=== PATIENT | female | born 1995 ===

== ENCOUNTER 2021-06-03 14:34 | Outpatient (REF) | payer OTHER, MEDICAID, SELFPAY ==
--- NOTE | ~2021-06-03 | XR_ITS ---
EXAMINATION: XR RIGHT ANKLE AND RIGHT WRIST CLINICAL INFORMATION: Pain right ankle and right wrist. COMPARISON: None. TECHNIQUE: 3 views right wrist and 3 views right ankle. FINDINGS: Right ankle: There is no visible acute fracture or dislocation. The ankle mortise and subtalar joints are normal. There are bridging anterior osteophytes at the tibial talar joint. The soft tissues are normal. Right wrist: There is no visible acute fracture, dislocation or lytic process seen. The radioulnar carpal joint appears normal. The carpometacarpal joint space is normal. No bony erosive changes seen. XR/XR ankle RT min 3V IMPRESSION: Moderate bridging osteophyte anterior tibiotalar joint right ankle. No visible acute fracture or dislocation seen. Unremarkable right wrist exam.
--- NOTE | ~2021-06-03 | XR_ITS ---
EXAMINATION: XR RIGHT ANKLE AND RIGHT WRIST CLINICAL INFORMATION: Pain right ankle and right wrist. COMPARISON: None. TECHNIQUE: 3 views right wrist and 3 views right ankle. FINDINGS: Right ankle: There is no visible acute fracture or dislocation. The ankle mortise and subtalar joints are normal. There are bridging anterior osteophytes at the tibial talar joint. The soft tissues are normal. Right wrist: There is no visible acute fracture, dislocation or lytic process seen. The radioulnar carpal joint appears normal. The carpometacarpal joint space is normal. No bony erosive changes seen. XR/XR wrist RT min 3V IMPRESSION: Moderate bridging osteophyte anterior tibiotalar joint right ankle. No visible acute fracture or dislocation seen. Unremarkable right wrist exam.
== END 2021-06-03 14:35 | disposition home or self-care (01) ==
LOC: HO.HOSX 14:34
PROVIDERS: Visit Provider Physician Assistant
DX: S93.401A Sprain of unspecified ligament of right ankle, initial encounter (principal); S93.501A Unspecified sprain of right great toe, initial encounter; M25.531 Pain in right wrist
CPT/HCPCS: 73110; 73610

== ENCOUNTER → 2021-07-12 13:22 | Outpatient (BNVA) | payer OTHER, SELFPAY | PROVIDERS: Visit Provider Physician Assistant | DX: S63.501D Unspecified sprain of right wrist, subsequent encounter (principal); S63.40 Traumatic rupture of unspecified ligament of finger at metacarpophalangeal and interphalangeal joint | CPT/HCPCS: 99212 ==

== ENCOUNTER → 2021-08-09 10:19 | Outpatient (BNVA) | payer OTHER, MEDICAID, SELFPAY | PROVIDERS: Visit Provider Physician Assistant | DX: Z13.89 Encounter for screening for other disorder (principal) ==

== ENCOUNTER 2021-09-18 10:34 | Outpatient (RCR) | payer OTHER, MEDICAID, SELFPAY ==
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
== END 2022-01-08 14:01 | disposition home or self-care (01) ==
LOC: HO.OT 10:34
PROVIDERS: PCP Nurse Practitioner Primary Care; Visit Provider Physician Assistant
DX: S63.501D Unspecified sprain of right wrist, subsequent encounter (principal)
CPT/HCPCS: 97110; 97165

== ENCOUNTER 2021-11-07 14:00 | Outpatient (RCR) | payer OTHER, MEDICAID, SELFPAY ==
--- NOTE | 2021-12-18 13:41 | MHC.PT.DC ---
[facility] [place] Office [place] Office [place] Office [address] [place] [address] [phone] F: [phone] F: [phone] F: [phone] F: [phone] Physical Therapy Discharge Report Diagnosis: RIGHT ANKLE SPRAIN Date of Surgery: NA Date of Evaluation: 10/02/21 Date of Discharge: 12/18/21 Treatments to Date: 6 Cancellations to Date: 0 No Shows to Date: 0 Discharge Status: Patient Elected to Stop Discharge Summary: At last attended visit, Pt reports the ankle feels better. Declined additional therex d/t spinal fx that she reports she is seeing a chiropractor tomorrow for. She then no showed for remaining visits. Electronically signed by: Kaila Boothe PT, DPT Please sign and return to therapist. Thank you for your referral.
== END 2021-12-18 13:41 | disposition home or self-care (01) ==
LOC: HO.PT 14:00
PROVIDERS: PCP Nurse Practitioner Primary Care; Visit Provider Physician Assistant
DX: S93.401A Sprain of unspecified ligament of right ankle, initial encounter (principal)
CPT/HCPCS: 97110; 97140; 97161; 97530

== ENCOUNTER 2023-01-09 16:20 | Outpatient (REF) | payer OTHER, MEDICAID, SELFPAY ==
[2023-01-09 18:24] LABS: HCG Quantitative 958 mIU/mL
== END 2023-01-09 16:21 | disposition home or self-care (01) ==
LOC: HO.HHCL 16:20
PROVIDERS: Visit Provider Nurse Practitioner Primary Care
DX: Z32.01 Encounter for pregnancy test, result positive (principal)
CPT/HCPCS: 36415; 84702

== ENCOUNTER 2023-02-26 14:36 | Outpatient (REF) | payer OTHER, MEDICAID, SELFPAY ==
[2023-02-26 17:04] LABS: HCG Quantitative 16 mIU/mL
== END 2023-02-26 14:37 | disposition home or self-care (01) ==
LOC: HO.HHCL 14:36
PROVIDERS: Visit Provider Advanced Practice Midwife
DX: N96 Recurrent pregnancy loss (principal)
CPT/HCPCS: 36415; 84702

== ENCOUNTER 2023-03-19 16:15 | Outpatient (REF) | payer OTHER, MEDICAID, SELFPAY ==
[2023-03-24 04:33] LABS: C. trachomatis RNA TMA NOT DETECTED (NOT DETECTED); N. gonorrhoeae RNA TMA NOT DETECTED (NOT DETECTED); Trichomonas (NAAT) NOT DETECTED (NOT DETECTED)
== END 2023-03-19 16:16 | disposition home or self-care (01) ==
LOC: HO.HHCLNP 16:15
PROVIDERS: Visit Provider Advanced Practice Midwife
DX: Z12.4 Encounter for screening for malignant neoplasm of cervix (principal); Z20.2 Contact with and (suspected) exposure to infections with a predominantly sexual mode of transmission
CPT/HCPCS: 36415; 87491; 87591; 87661; 88142

== ENCOUNTER 2023-11-11 10:42 | Emergency (ER) | payer MEDICAID, SELFPAY ==
[2023-11-11 10:49] VITALS: BP 102/68; PULSE 78; RESP 14; TEMP 36.2; O2SAT 100; BMI 26.9
[2023-11-11 11:30] LABS: MANUAL DIFF FLAG NO
[2023-11-11 11:37] LABS: Appearance Urine Cloudy; Basophils Percent Auto 0.6 % (0-2); Color Urine Dark Yellow; Eosinophils Absolute Auto 0.1 X10*3/uL (0.0-0.4); Glucose Urine UA Negative (Negative); Hematocrit 36.3 % (37.0-47.0); Hemoglobin 12.6 g/dl (12.0-16.0); Imm Gran Abs Auto 0.05 X10*3/uL (0.00-0.03); Imm Gran Pct Auto 0.8 % (0.0-0.4); Leukocyte Esterase Urine Small (1+) (Negative); Lymphocytes Absolute Auto 1.6 X10*3/uL (1.2-4.9); Lymphocytes Percent Auto 24.6 % (20-40); Mean Corpuscular HGB Conc 34.7 g/dl (31.0-35.0); Mean Corpuscular Hemoglobin 32.9 pg (27.0-33.0); Mean Corpuscular Volume 94.8 fL (80.0-98.0); Mean Platelet Volume 10.8 fL (9.4-12.3); Monocytes Absolute Auto 0.6 X10*3/uL (0.1-1.2); Monocytes Percent Auto 9.7 % (2-11); Neutrophils Percent Auto 62.3 % (45-73); Nitrite Urine Negative (Negative); Platelet Count 287 X10*3/uL (160-400); Red Blood Count 3.83 X10*6/uL (4.20-5.50); Red Cell Distribution Width 12.7 % (11.0-16.0); Specific Gravity - Urine 1.025 (1.005-1.025); UMIC TRIGGER UACC YES; Urine Blood Large (3+) (Negative); Urine Ketones Negative (Negative); Urine Protein 30 (1+) mg/dL (Neg-Trace); White Blood Count 6.4 X10*3/uL (4.8-10.8)
[2023-11-11 11:41] LABS: UPreg QC Valid YES; Urine Pregnancy NEGATIVE (NEGATIVE)
[2023-11-11 11:42] LABS: Bacteria Urine 4+ (None Seen); Hyaline Casts Urine 0-2 /LPF (0-2); Squamous Epithelial Cell Urine >20 /HPF (0-2); UACC Culture Trigger YES
[2023-11-11 11:50] LABS: Alanine Aminotransferase 24 U/L (0-31); Albumin Level 4.1 g/dL (3.5-5.0); Alkaline Phosphatase 70 U/L (39-117); Anion Gap 10 (12-20); Aspartate Amino Transferase 32 U/L (5-31); Bilirubin Total 0.8 mg/dL (0.0-1.0); Blood Urea Nitrogen 13 mg/dL (9-16); Calcium 9.8 mg/dL (8.4-10.2); Carbon Dioxide 30 mmol/L (22-29); Chloride 105 mmol/L (96-108); Creatinine Clr Calc Pharmacy 111.9; Estimated Glomerular Filt Rate > 60; Glucose Random 86 mg/dL (60-115); Potassium 4.8 mmol/L (3.3-5.1); Sodium 140 mmol/L (135-145); Total Protein 7.4 g/dL (6.5-8.0)
--- NOTE | 2023-11-11 12:39 | ED_ITS ---
HPI - General Adult General Chief complaint: Vaginal Bleeding Stated complaint: bleeding-genital Time Seen by Provider: 11/11/23 12:14 Source: patient and nail sticker (all interactions with this patient were facilitated with an [facility] glazier supervisor) Mode of arrival: ambulatory Limitations: language barrier (all interactions with this patient were facilitated with an [facility] [place] [facility] glazier supervisor) History of Present Illness ED Provider: Maryam Schroeder PA-C HPI narrative: Patient is a 28 year old assigned female at with no reported medical history presenting to the emergency department today with persistent vaginal bleeding. Patient states that her period ended 2 weeks ago but she recently started bleeding again, going through 2-3 pads a day. Patient states that when she was heavier she had irregular periods but that hasn't been an issue since losing the weight. Patient denies any dizziness, lightheadedness, abdominal pain, nausea, vomiting, fever, chills, blurry vision, double vision, loss of vision, chest pain, difficulty breathing, shortness of breath, back pain, night sweats, pain with urination, increased urinary frequency, increased urinary urgency, syncope or a near syncopal episode, recent trauma or falls, bowel incontinence, bladder incontinence, or any other complaints at this time. Relieving factors: none Exacerbating factors: none Associated symptoms: denies other symptoms Treatments prior to arrival: none Related Data Home Medications ?Medication ?Instructions ?Recorded ?Confirmed acetaminophen 650 mg 650 mg PO Q12H 06/03/21 tablet,extended release (Mapap Arthritis Pain) cyclobenzaprine 7.5 mg tablet 7.5 mg PO BEDTIME 06/03/21 Previous Rx's ?Medication ?Instructions ?Recorded naproxen 500 mg tablet (Naprosyn) 500 mg PO BID 30 days #60 tabs 11/27/21 Allergies Allergy/AdvReac Type Severity Reaction Status Date / Time No Known Allergies Allergy Verified 11/11/23 10:56 Review of Systems 2 Constitutional: Constitutional: Reports no additional constitutional complaints, Denies chills, Denies fever(s) and Denies night sweats Eyes: Eyes: Reports no additional eye complaints, Denies blurry vision, Denies change in vision, Denies diplopia, Denies eye discharge, Denies loss of vision and Denies eye pain ENT: Denies dizziness Cardiovascular: Cardiovascular: Reports no additional cardiovascular complaints, Denies chest pain, Denies lightheadedness, Denies Loss of Consciousness and Denies dyspnea Respiratory: Respiratory: Reports no additional respiratory complaints and Denies dyspnea Gastrointestinal: Gastrointestinal: Reports no additional gastrointestinal complaints, Denies abdominal pain, Denies melena, Denies hematochezia, Denies change in bowel habits and Denies change in stool character Genitourinary: Genitourinary: Denies hematuria, Denies urinary frequency, Denies dysuria, Denies urinary incontinence, Denies urinary hesitancy and Denies urinary urgency Comments: vaginal bleeding Musculoskeletal: Musculoskeletal: Reports no additional musculoskeletal complaints, Denies numbness and Denies tingling Neurologic: Denies dizziness, Denies loss of vision, Denies numbness and Denies tingling Psychiatric: Psychiatric: Reports no additional psychiatric complaints Endocrine: Endocrine: Reports no additional endocrine complaints Hematologic/Lymphatic: Hematologic/Lymphatic: Reports no additional hematologic/lymphatic complaints Allergic/Immunologic: Allergic/Immunologic: Reports no additional allergic/immunologic complaints PMFSH Past Medical History Attestation statement: The following information was validated with the patient. Source: old records reviewed and nursing notes reviewed Social History Social History Advance Directives: No Advance Directives Information Provided: No Current occupational status: employed Current occupation: STAFF MIDWIFE/APPRENTICESHIP DIRECTOR warehouse/ rt hand Physical Exam ED Vital Signs: Vital Signs - 24 hr 11/11/23 10:49 11/11/23 13:24 Temperature 97.1 F 97.7 F Pulse Rate 78 77 Respiratory Rate 14 16 Blood Pressure 102/68 103/70 Pulse Oximetry 100 99 Oxygen Delivery Method Room Air Room Air BMI result Body Mass Index 26.9 Const General: cooperative, no acute distress, alert and awake Nutritional Appearance: well nourished Orientation/consciousness: patient oriented x3 Limitations: no limitations [facility] Head: Yes normal to inspection and Yes atraumatic Ears: hearing grossly normal bilaterally and external ears normal General nose exam: Normal external nose present, no nasal discharge noted and no epistaxis Face and sinus: Yes normal facial exam, No abrasion and No laceration Mouth: Normal oral and palatal mucosa present, no drooling and no muffled voice Eyes General: appearance normal, both eyes and all related structures Periorbital: periorbital findings normal Eyelids: Yes eyelids normal Conjunctivae: conjunctivae normal Pupils: Equal, round and reactive pupils present EOM: EOMs intact bilaterally Neck Neck: Yes normal visual inspection, Yes full ROM and Yes no lymphadenopathy Chest Chest palpation & inspection: normal inspection of the chest Resp Effort & Inspection: normal respiratory effort and able to speak in complete sentences GI Inspection: Yes normal to inspection Neuro General: patient oriented x3 and moves all extremities Cranial nerves: Yes Equal, round and reactive pupils present Cognition (Neuro): normal cognition Extrem General: Yes normal to inspection, Yes full ROM and Yes capillary refill normal Psych Appearance: grossly normal Mental Status: mental status grossly normal Affect: normal affect Attitude: cooperative Thought process: Normal thought process present Thought content: Normal thought content present Insight: Good insight present (Psych) Medical Decision Making Medical Decision Making MDM Narrative: Patient is a 28 year old assigned female at with no reported medical history presenting to the emergency department today with vaginal bleeding. Patient's physical exam was unremarkable. Patient's blood work was unremarkable. Patient's urine showed a possible UTI however, the patient's urine sample has a lot of contamination, will await culture before initiating treatment. I explained my physical exam findings as well as all test results to the patient. I answered all questions asked by the patient. I stressed the importance of the patient taking her medication as directed (either prescribed or as the over the counter packaging recommends). I stressed the importance of the patient following up with her primary care provider. I stressed the importance of the patient returning to the emergency department immediately if her symptoms were to worsen or if she were to develop any dizziness, shortness of breath, difficulty breathing, chest pain, blurry vision, loss of vision, nausea, vomiting, abdominal pain, fever, chills, back pain, or any other complaints. Patient verbalized agreement and understanding with this treatment plan and discharge. Differential Diagnosis Differential Diagnoses: The differential diagnosis associated with the presentation includes Vaginal bleeding Abnormal uterine bleeding PCOS Admission/Observation Consideration of admission/observation: Escalation of care including admission/observation considered Patient would have been admitted to the hospital had her work up had any findings where hospital admission was appropriate and her clinical presentation warranted hospital admission. Lab Data [facility] Lab Attestation statement: I reviewed the patient's lab results. My interpretation of these results are in the [facility] Rationale portion of this note. 11/11/23 11:24 11/11/23 11:24 Labs: Lab Results 11/11/23 Range/Units 11:24 WBC 6.4 (4.8-10.8) X10*3/uL RBC 3.83 L (4.20-5.50) X10*6/uL Hgb 12.6 (12.0-16.0) g/dl Hct 36.3 L (37.0-47.0) % MCV 94.8 (80.0-98.0) fL MCH 32.9 (27.0-33.0) pg MCHC 34.7 (31.0-35.0) g/dl RDW 12.7 (11.0-16.0) % Plt Count 287 (160-400) X10*3/uL MPV 10.8 (9.4-12.3) fL Immature Gran % (Auto) 0.8 H (0.0-0.4) % Neut % (Auto) 62.3 (45-73) % Lymph % (Auto) 24.6 (20-40) % [place] % (Auto) 9.7 (2-11) % Eos % (Auto) 2.0 (0-4) % Baso % (Auto) 0.6 (0-2) % Lymph # (Auto) 1.6 (1.2-4.9) X10*3/uL [place] # (Auto) 0.6 (0.1-1.2) X10*3/uL Eos # (Auto) 0.1 (0.0-0.4) X10*3/uL Baso # (Auto) 0.0 (0.0-0.2) X10*3/uL Abs Immat Gran (auto) 0.05 H (0.00-0.03) X10*3/uL Absolute Neuts (auto) 4.0 (2.0-8.3) x10*3/uL Absolute Nucleated RBC 0.000 (0.0-0.012) X10*3/uL Nucleated RBC % (auto) 0.0 (0.0-0.2) /100WBC Sodium 140 (135-145) mmol/L Potassium 4.8 (3.3-5.1) mmol/L Chloride 105 (96-108) mmol/L Carbon Dioxide 30 H (22-29) mmol/L Anion Gap 10 L (12-20) BUN 13 (9-16) mg/dL Creatinine 0.73 (0.5-1.4) mg/dL Estim Creat Clear Calc 111.9 Estimated GFR > 60 Random Glucose 86 (60-115) mg/dL Calcium 9.8 (8.4-10.2) mg/dL Total Bilirubin 0.8 (0.0-1.0) mg/dL AST 32 H (5-31) U/L ALT 24 (0-31) U/L Alkaline Phosphatase 70 (39-117) U/L Total Protein 7.4 (6.5-8.0) g/dL Albumin 4.1 (3.5-5.0) g/dL Urine Color Dark Yellow Urine Appearance Cloudy Urine pH 7.0 (5.0-9.0) Ur Specific [place] 1.025 (1.005-1.025) Urine Protein 30 (1+) H (Neg-Trace) mg/dL Urine Glucose (UA) Negative (Negative) mg/dL Urine Ketones Negative (Negative) mg/dL Urine Blood Large (3+) H (Negative) Urine Nitrite Negative (Negative) Ur Leukocyte Esterase Small (1+) H (Negative) Urine RBC 11-20 H (0-2) /HPF Urine WBC 11-20 H (0-5) /HPF Ur Squamous Epith Cells >20 (0-2) /HPF Urine Bacteria 4+ (None Seen) Hyaline Casts 0-2 (0-2) /LPF Urine Test NEGATIVE (NEGATIVE) Tests considered The following testing was considered but not selected: I considered obtaining a pelvic ultrasound however, the patient's clinical presentation does not warrant it. I discussed this with the patient who verbalized understanding and agreement. Discharge Plan Discharge Clinical Impression: Dysfunctional uterine bleeding Patient Disposition: Home, Self-Care Instructions: Dysfunctional Uterine Bleeding (ED) Additional Instructions: Follow up with your primary care provider and an OBGYN. Return to the emergency department immediately if your symptoms worsen or if you develop any dizziness, shortness of breath, difficulty breathing, chest pain, blurry vision, loss of vision, nausea, vomiting, abdominal pain, fever, chills, back pain, or any other complaints. Julius un seguimiento con garcia m?dico de atenci?n primaria y un ginec?logo obstetra. Vuelva inmediatamente al servicio de urgencias si luz s?ntomas empeoran o si presenta mareos, falta de aliento, dificultad para respirar, dolor tor?cico, visi?n borrosa, p?rdida de visi?n, n?useas, v?mitos, dolor abdominal, fiebre, escalofr?os, dolor de espalda o cualquier otra molestia. Prescriptions: No Action acetaminophen [Mapap Arthritis Pain] 650 mg tablet extended release 650 mg PO Q12H cyclobenzaprine 7.5 mg tablet 7.5 mg PO BEDTIME naproxen [Naprosyn] 500 mg tablet 500 mg PO BID 30 Days Qty: 60 3RF Referrals: [facility] Family Medicine [Provider Group] (Call to establish and follow up with a primary care provider. If you already have a primary care provider, please follow up with them.) [facility] Primary Care, Francine [Provider Group] (Call to establish and follow up with a primary care provider. If you already have a primary care provider, please follow up with them.) [facility] Primary Care,Eva [Provider Group] (Call to establish and follow up with a primary care provider. If you already have a primary care provider, please follow up with them.) Ace Osborne MD [Physician] - (Call to establish and follow up with an OBGYN. Patience para establecer y hacer un seguimiento con un ginec?logo obstetra.) Interventions: ED Discharge Assessment Last Done: 11/11/23 13:24 Discharge Date/Time: 11/11/23 13:26 Print Language: Belarusian
[2023-11-11 13:24] VITALS: BP 103/70; PULSE 77; RESP 16; TEMP 36.5; O2SAT 99
== END 2023-11-11 13:26 | disposition home or self-care (01) ==
PROVIDERS: Emergency Provider Emergency Medicine Emergency Medical Services
DX: N93.8 Other specified abnormal uterine and vaginal bleeding (principal); Z79.899 Other long term (current) drug therapy
CPT/HCPCS: 36415; 80053; 81001; 81025; 85025; 87086; 99282; 99283

== ENCOUNTER 2023-11-18 09:33 | Outpatient (REF) | payer MEDICAID, SELFPAY ==
[2023-11-18 11:44] LABS: Aspartate Amino Transferase 21 U/L (5-31)
[2023-11-19 03:18] LABS: CT PCR NOT DETECTED (Not Detect.); NG PCR NOT DETECTED (Not Detect.)
[2023-11-19 17:08] LABS: HCG Tumor Marker <5 mIU/mL
== END 2023-11-18 09:34 | disposition home or self-care (01) ==
LOC: HO.HHCL 09:33
PROVIDERS: Visit Provider Advanced Practice Midwife
DX: N96 Recurrent pregnancy loss (principal); R74.01 Elevation of levels of liver transaminase levels; N93.9 Abnormal uterine and vaginal bleeding, unspecified
CPT/HCPCS: 36415; 84450; 84702; 87491; 87591